=== PATIENT | male | born 1970 | race Caucasian/White ===

== ENCOUNTER 2024-01-07 04:56 | Emergency (ER) | payer SELFPAY ==
[2024-01-07 05:01] VITALS: BMI 29.0
[2024-01-07] MEDS ORDERED: MECLIZINE HCL 25 MG TABLET (FP) ONE (05:33)
[2024-01-07] MEDS: SODIUM CHLORIDE 0.9% 500 ML INFUS.BAG IV ONE (05:37)
[2024-01-07] MEDS: MECLIZINE HCL 25 MG TABLET (FP) PO ONE (05:37)
[2024-01-07 05:48] LABS: BASO % 0.3 % (0-2.0); EOS % 0.1 % (0-4.5); HEMATOCRIT 46.4 % (35.4-49); HEMOGLOBIN 15.7 GM/dL (11.7-16.9); LYMPH % 25.4 % (8-40); MCH 29.5 pg (25.7-33.7); MCHC 33.8 g/dl (32.0-35.9); MEAN CELL VOLUME 87.2 fl (80-96); MEAN PLT VOLUME 9.2 fl (7.5-11.1); MONO % 5.8 % (3.8-10.2); NEUT % 68.4 % (42.8-82.8); PLATELET COUNT 225 10^3/uL (134-434); RBC 5.32 M/mm3 (4.00-5.60); RDW 13.9 % (11.9-15.9)
[2024-01-07 06:05] LABS: INR 1.01 (0.83-1.09); PROTHROMBIN TIME (PATIENT) 11.6 SEC (9.7-13.0)
[2024-01-07 06:08] LABS: ACTIVATED PTT 31.3 SECONDS (25.2-36.5); POTASSIUM 3.9 mmol/L (3.5-5.1)
[2024-01-07 06:10] LABS: ALBUMIN 4.1 g/dl (3.4-5.0); CALCIUM 9.1 mg/dL (8.5-10.1)
[2024-01-07 06:13] LABS: CREATININE 0.9 mg/dL (0.55-1.3)
[2024-01-07 06:15] LABS: BILIRUBIN,TOTAL 0.7 mg/dL (0.2-1); TOT PROT 7.8 g/dl (6.4-8.2)
[2024-01-07] MEDS ORDERED: METOCLOPRAMIDE HCL INJECTION 10 MG/2 ML VIAL ONE (07:07)
[2024-01-07] MEDS: METOCLOPRAMIDE HCL INJECTION 10 MG/2 ML VIAL IVPB ONE (07:27)
[2024-01-07] MEDS ORDERED: ASPIRIN 325 MG TABLET ONE (08:17)
[2024-01-07] MEDS: ASPIRIN 81 MG CHEWABLE TABLETS PO ONE (08:20)
[2024-01-07 09:18] VITALS: BP 156/89; PULSE 52; RESP 15; TEMP 98.1
[2024-01-07 10:33] LABS: CHOLESTEROL 201 mg/dL (50-200)
[2024-01-07 10:34] LABS: LDL CHOLESTEROL (ONLY SJRH) 118 mg/dL (5-100)
[2024-01-07 10:35] LABS: HDL CHOLESTEROL 43 mg/dL (40-60)
== END 2024-01-07 09:50 | disposition short-term general hospital (02) ==
LOC: JER 04:56
DX: G46.4 Cerebellar stroke syndrome (principal); R42 Dizziness and giddiness; R11.0 Nausea; Z20.822 Contact with and (suspected) exposure to COVID-19
CPT/HCPCS: 0241U-QW; 36415; 70450-TC; 70496-TC; 70498-TC; 71045-TC-FY; 80053; 80061; 82962; 83036; 84484; 85025; 85610; 85730; 86850; 86900; 86901; 93005; 93010; 99285-25